=== PATIENT | female | born 1980 | race Caucasian/White ===

== ENCOUNTER → 2017-01-17 | Outpatient (REF) | payer OTHER ==
[~2017-01-17] MED LIST: HYDR-3702 PO; IBUP-792 PO; LEVO75TA PO
[2017-01-18 02:38] LABS: ANTI NUCLEAR ANTIBODY SCREEN Negative (Negative)
== END ==
LOC: LAB 10:25
PROVIDERS: ATTEND Nurse Practitioner Family
DX: M54.5 Low back pain (principal)
CPT/HCPCS: 85652; 86038; 86140; 86431

== ENCOUNTER → 2017-01-17 | Outpatient (CLI) | payer OTHER ==
--- NOTE | 2017-01-17 11:54 | Diagnostic Imaging Report ---
INDICATION: Acute lower back pain. COMPARISON: None FINDINGS: Frontal, lateral, and oblique views of the lumbar spine were obtained. Alignment and vertebral heights are maintained. There is no fracture or destructive process. Limited views of the abdomen demonstrate nonobstructive bowel gas pattern. IMPRESSION: 1. No acute fracture or dislocation of the lumbar spine. Dictated by: Dictated on workstation # [id number]
== END ==
LOC: RAD 10:21
PROVIDERS: ATTEND Nurse Practitioner Family
DX: M54.5 Low back pain (principal)
CPT/HCPCS: 72110

== ENCOUNTER 2017-02-14 08:15 | Outpatient (RCR) | payer OTHER ==
--- NOTE | 2017-01-19 15:01 | PT/OT/ST INITIAL EVALUATION ---
Department of Health and Human Services Form Approved [facility] Care Financing Administration OMB No. [id number] PLAN OF CARE/ASSESSMENT FOR OUTPATIENT REHABILITATION (Complete for Initial Claims Only) 1. PATIENT'S NAME Rosetta Mercer 2. ACC # [id number] 3. HICN N/A 4. PROVIDER NO. [id number] 5. TYPE: PT 6. PRIOR HOSPITALIZATION N/A 7. PRIMARY DX Acute low back pain ICD-10 M54.5 8. SECONDARY DX N/A 9. ONSET DATE 01/05/2017 10. REFERRAL DATE 01/17/2017 11. SOC. DATE 01/18/2017 12. TIME OF EVAL 12. REFERRING PHYSICIAN Zaina Jacobson APRN with patient primary care physician Yury Bowman MD 13. CHARGES/UNITS Evaluation 32736 2 [place] 02246 1 [place] [id number] 14. G CODES N/A 15. PRIOR LEVEL OF FUNCTION; PERTINENT HISTORY (Prior therapy results, reason for referral.) S: Prior to therapy the patient consented to today's evaluation and treatment. The patient is a 36-year-old female referred by Zaina Jacobson APRN, who reports a gradual and progressive increase in low back discomfort starting on 01/05/2017. Mechanism of injury: The patient notes she was lifting weights and was returning from a flexed lumbar position when she noticed she was unable to fully stand upright secondary to the pain that was in her central low back. Prior level of function: Prior to the onset of pain, the patient was participating in [employer] 3 days a week. She was very active around her home and was planning to start moving rocks and getting her garden ready. Current level of function: The patient notes that moving laundry is bothersome to her. She is unable to get out and move rocks and initiate gardening tasks without assistance from her son and she has been unable to work out since the onset of pain. Therapy History: The patient has not had any therapy for this issue. Pain level: Current pain level is 4/10. Maximal pain level is greater than 4/10. The pain is described as a sharp pain in the low back with specific movements including lumbar flexion, as well as transitional movements. She does also report a constant ache when sharp pain is note experienced in the central low back. The patient also notes achiness in both her knees, but does not belief this to be associated with her low back pain. Aggravating factors: The pain is aggravated in the low back by transitional movements, such as transiting from sit to stand or when lying on her right or left side. Relieving factors: Avoiding exacerbating positions. Diagnostic testing: The patient did have an x-ray, which was negative for any injury or issues. She has not undergone any MRI. Past medical history: Left knee scope, knee issues with report of them feeling fatigued and warm at times and undergoing a lumpectomy last year, but denies any other issues related to this. Current medications: The patient did start taking ibuprofen yesterday. She did not provide any other medications at this time. Activity level: Patient reports being active Personal health rating: Her health rating is good. Patient's Goal: The patient's goal for physical therapy is to decrease pain and regain mobility. 16. INITIAL ASSESSMENT/SAFETY PRECAUTIONS/MEDICAL COMPLICATIONS (Level of function at start of care. Be specific, use objective measures, list problems.) O: APPEARANCE, OBSERVATION AND GAIT: Observation of the patient's posture in standing reveals right iliac crest is superior to the left. Neutral knee alignment is noted. The patient does have increased lumbar lordosis and decreased thoracic kyphosis. PT's assessment of the patient's squat techniques reveals she has decreased utilization of hip extensors and increased utilization of lumbar extension to complete this task. PALPATION: Tenderness to palpation of the bilateral SI joints, greatest on the left. Significant tightness palpable in the bilateral lumbar paraspinals, greatest along the iliac crest. SPECIAL TESTS: The patient has a right posterior innominate on the left moving short to long on the long sitting test. Negative lumbar shear test for instability at L2 through L5. Positive straight leg raise test for increased nerve test bilaterally. Positive sacral distraction test for decreased discomfort. Negative hip scour, CELESTINA and FADER test bilaterally. RANGE OF MOTION/FLEXIBILITY: Lumbar flexion is full, but the patient demonstrates increased hip pelvic movement in comparison to her lumbar spine. Hamstring length is limited by 20 degrees bilaterally. MOBILITY: The patient has sacral counter rotation and right sacral rotation. Hypomobility is noted with spring test of T10 through L5, as well as at the sacrum. STRENGTH: Bilateral hip flexion, knee flexion, extension, ankle dorsiflexion and hip abduction on the left are 5/5. TODAY'S TREATMENT: Today's treatment consisted of educating the patient on the findings of the initial evaluation and recommending treatment plan. The physical therapist educated the patient on specific body movements to avoid including rotation and forward trunk lean. The physical therapy initiated gentle low back stretching and nerve glides with patient educated to complete these to her tolerance. Manual therapy techniques were utilized to improve muscle flexibility as well as joint mobilizations to the low lumbar spine and sacrum to improve positioning of the sacrum and mobility through the lumbar spine. The patient did tolerate this treatment with increased mobility and decreased stiffness. 17. INITIAL POC: (Specify procedures, modalities, short and termite technician goals) A: The patient presents to physical therapy with an acute onset of low back pain with subsequent impaired movement. The patient has positive nerve tension test, as well as sacral and SI joint rotation issues, as well as hypomobility throughout the lower thoracic and lumbar spine. PROGNOSIS: The patient does have a good outcome in physical therapy due to her active prior level of function and motivation to improve. She will continue to have a good prognosis if she is compliant with activity modification recommendations and regular therapy attendance. OUTCOME ASSESSMENT: The patient scores a 7/45 on the Modified Oswestry pain questionnaire. INFORMED CONSENT: The diagnosis, prognosis, treatment plan, risks and expected outcomes were discussed with this patient and she is agreeable to today's established plan of care. SHORT TERM GOALS X3 WEEKS: 1. The patient will report complete resolution of low back pain and stiffness to return to gardening tasks without limitations. 2. The patient will regain normalized lumbar spine mobility to improve body mechanics with functional tasks. 3. The patient will report independence and compliance with her home exercise program. 4. The patient will improve bilateral hamstring flexibility by 10 degrees to decrease strain on the low back and pelvis. 5. The patient will demonstrate proper squat technique with 10 pounds for 5 repetitions to decrease her risk of reinjuring to this area. P: Plan to treat this patient 3 times a week for 3 weeks in order to address low back pain and stiffness. Treatment will include modalities as needed including ultrasound, electrical stimulation, iontophoresis to decrease pain and stiffness. Manual therapy techniques will be utilized including joint mobilization, myofascial release, soft tissue and deep tissue mobilization, as well as cross-friction massage. Therapeutic exercise will include improving lumbar spine mobility, improving trunk stabilization, as well as coordination between the hip and low back movements. Functional training will also be utilized emphasizing on proper body mechanics with functional lifting tasks related to the patient's daily life. The patient was provided a home exercise program and this will be progressed as needed. Thank you for the referral of this patient. 18. FREQUENCY 3 times per week 19. DURATION 3 weeks 20. FUNCTIONAL LEVEL (End of claim period) 21. PHYSICIAN SIGNATURE ? ON FILE OR ENTER HERE: 22. DATE: I certify the need for these services furnished under this plan of care and if for partial hospitalization. 23. CERTIFICATION FROM THROUGH FORM [id number]
== END 2017-02-26 12:49 | disposition home or self-care (01) ==
LOC: PT 08:15
PROVIDERS: ATTEND Nurse Practitioner Family
DX: M54.5 Low back pain (principal)
CPT/HCPCS: 97110; 97112; 97140; 97161; 97530; G0283; 97014